=== PATIENT | male | born 1950 | race Asian ===

== ENCOUNTER 2022-02-03 07:48 | Outpatient (REF) | payer OTHER, SELFPAY ==
[2022-02-03 11:14] LABS: MANUAL DIFF FLAG NO
[2022-02-03 11:36] LABS: Basophils Percent Auto 0.4 % (0-2); Eosinophils Absolute Auto 0.8 X10*3/uL (0.0-0.4); Eosinophils Percent Auto 10.6 % (0-4); Hematocrit 45.9 % (42.0-52.0); Imm Gran Abs Auto 0.04 X10*3/uL (0.00-0.03); Imm Gran Pct Auto 0.5 % (0.0-0.4); Lymphocytes Absolute Auto 2.3 X10*3/uL (1.2-4.9); Lymphocytes Percent Auto 28.8 % (20-40); Mean Corpuscular HGB Conc 32.7 g/dl (31.0-36.0); Mean Corpuscular Volume 85.8 fL (80.0-98.0); Mean Platelet Volume 10.6 fL (9.4-12.4); Monocytes Absolute Auto 0.6 X10*3/uL (0.1-1.2); Monocytes Percent Auto 7.3 % (2-11); Neutrophils Absolute Auto 4.2 x10*3/uL (2.0-8.3); Neutrophils Percent Auto 52.4 % (45-73); Platelet Count 181 X10*3/uL (160-400); Red Blood Count 5.35 X10*6/uL (4.60-5.80); Red Cell Distribution Width 13.6 % (11.0-16.0)
[2022-02-03 12:27] LABS: Alanine Aminotransferase 15 U/L (0-40); Alkaline Phosphatase 73 U/L (39-117); Anion Gap 14 (12-20); Aspartate Amino Transferase 16 U/L (5-37); Bilirubin Total 0.7 mg/dL (0.0-1.0); Blood Urea Nitrogen 16 mg/dL (9-16); Calcium 9.2 mg/dL (8.4-10.2); Carbon Dioxide 25 mmol/L (22-29); Chloride 106 mmol/L (96-108); Cholesterol 164 mg/dL; Estimated Glomerular Filt Rate 39; Glucose Fasting 95 mg/dL (60-99); HDL Cholesterol 35 mg/dL; LDL Cholesterol Calculated 104 mg/dl; Potassium 3.7 mmol/L (3.3-5.1); Sodium 141 mmol/L (135-145); Total Protein 6.6 g/dL (6.5-8.0); Triglycerides 127 mg/dL
== END 2022-02-03 07:49 | disposition home or self-care (01) ==
LOC: HO.WFDLDS 07:48
PROVIDERS: Visit Provider Nurse Practitioner Family
DX: Z00.00 Encounter for general adult medical examination without abnormal findings (principal); Z12.5 Encounter for screening for malignant neoplasm of prostate
CPT/HCPCS: 36415; 80053; 80061; 84153; 85025

== ENCOUNTER 2022-02-13 08:58 | Outpatient (REF) | payer OTHER, SELFPAY ==
[2022-02-13 10:53] LABS: Estimated Glomerular Filt Rate 43
== END 2022-02-13 08:59 | disposition home or self-care (01) ==
LOC: HO.WFDLDS 08:58
PROVIDERS: Visit Provider Nurse Practitioner Family
DX: N17.9 Acute kidney failure, unspecified (principal)
CPT/HCPCS: 36415; 82565

== ENCOUNTER 2022-04-16 09:48 | Outpatient (REF) | payer OTHER, SELFPAY ==
[2022-04-16 12:05] LABS: Alanine Aminotransferase 11 U/L (0-40); Albumin Level 3.8 g/dL (3.5-5.0); Anion Gap 16 (12-20); Aspartate Amino Transferase 14 U/L (5-37); Blood Urea Nitrogen 15 mg/dL (9-16); Calcium 8.8 mg/dL (8.4-10.2); Carbon Dioxide 22 mmol/L (22-29); Chloride 107 mmol/L (96-108); Estimated Glomerular Filt Rate 46; Glucose Fasting 100 mg/dL (60-99); Potassium 3.7 mmol/L (3.3-5.1); Sodium 141 mmol/L (135-145); Total Protein 6.3 g/dL (6.5-8.0)
[2022-04-16 12:21] LABS: Alkaline Phosphatase 74 U/L (39-117); Bilirubin Total 0.7 mg/dL (0.0-1.0)
== END 2022-04-16 09:49 | disposition home or self-care (01) ==
LOC: HO.WFDLDS 09:48
PROVIDERS: Visit Provider Nurse Practitioner Family
DX: N28.9 Disorder of kidney and ureter, unspecified (principal)
CPT/HCPCS: 36415; 80053

== ENCOUNTER → 2022-04-22 09:52 | Outpatient (BNVA) | payer OTHER, SELFPAY | PROVIDERS: PCP Nurse Practitioner Family; Visit Provider Nurse Practitioner Family | DX: N40.1 Benign prostatic hyperplasia with lower urinary tract symptoms (principal); R39.14 Feeling of incomplete bladder emptying | CPT/HCPCS: 51798; 99202 ==

== ENCOUNTER 2022-05-07 08:39 | Outpatient (REF) | payer OTHER, SELFPAY ==
[2022-05-07 10:29] LABS: PSA,Total (Free>4and<10) 20.16 ng/mL (0.00-4.00)
== END 2022-05-07 08:40 | disposition home or self-care (01) ==
LOC: HO.LAB 08:39
PROVIDERS: PCP Nurse Practitioner Family; Visit Provider Nurse Practitioner Family
DX: N40.0 Benign prostatic hyperplasia without lower urinary tract symptoms (principal)
CPT/HCPCS: 36415; 84153

== ENCOUNTER → 2022-07-18 09:40 | Outpatient (BNVA) | payer OTHER, SELFPAY | PROVIDERS: PCP Nurse Practitioner Family; Visit Provider Urology | DX: N40.1 Benign prostatic hyperplasia with lower urinary tract symptoms (principal); R39.14 Feeling of incomplete bladder emptying; R97.20 Elevated prostate specific antigen [PSA] | CPT/HCPCS: 52000; 99212 ==

== ENCOUNTER 2022-10-16 08:52 | Outpatient (AMB) | payer OTHER, SELFPAY ==
[2022-10-16 08:57] VITALS: BP 108/60; PULSE 74; RESP 12; TEMP 36.2; O2SAT 99; BMI 20.6
--- NOTE | 2022-10-16 08:57 | MHC.PC.OV ---
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 Accompanied by: Self / Same As Patient Allergies No Known Allergies Allergy (Verified 10/16/22 09:31) Medication List - Last Reconciled 10/16/22 by Tc Escudero CNP finasteride 5 mg PO DAILY 90 days terazosin 10 mg PO BEDTIME 90 days Tobacco use date assessed: 04/16/22 Fall risk assessment: No Falls in past year Last assessed Fall Risk: 10/16/22 Dental Screening Dental Screen Date: 10/16/22 Did you have a dental visit in the last 12 months?: No Did you have a dental problem in the last 6 months where you did not have access to dental care?: No Was dental information given to patient?: Patient has dentist HPI HPI Comments History of Present Illness Details 72 y/o male presents with for BPH and kidney disease follow up. He notes he has been taking his medications as prescribed. No symptoms. He missed his initial nephrology appointment in May and states he has an appointment with Nephrology next month. He reports intermittent pain to the muscle above his left scapula for the past one month. Range of motion is not restricted. No fall, injury, or trauma. He takes Tylenol with some improvement. [facility] Medical History Enlarged prostate Social History Housing: House Patient Tobacco Use Status: Never used Tobacco e-Cigarette/Vaping Use: Never Used Second Hand Smoke Exposure: No service: No Current occupational status: employed Current occupation: [employer] Current occupational exposures/hazards: No Cognitive needs: No Hearing needs: No Vision needs: No Questionnaire Thrive Questionnaire Date Thrive assessed: 04/16/22 NIYA-7 AMB Questionnaire NIYA-7 Date NIYA - 7 assessed: 04/16/22 Source: Developed by Drs. Ariel Arias, Marie Momin, Cedrick Nascimento and colleagues, with an educational leigh ann from [employer]. Review of Systems Const Details: Const Denies chills, Denies fatigue, Denies fever(s), Denies headache(s) and Denies weakness ENT Denies dizziness and Denies headache(s) Card Denies chest pain, Denies lightheadedness, Denies dyspnea and Denies other (Palpitations) Resp Denies cough, Denies dyspnea, Denies wheezing and Denies other ( shortness of breath) GI Denies abdominal pain, Denies melena, Denies hematochezia, Denies change in bowel habits, Denies dyspepsia and Denies nausea Denies hematuria and Denies dysuria Musc Reports upper back pain, Denies abnormal gait, Denies myalgias, Denies arthralgias, Denies numbness and Denies tingling Skin/Breast Denies rash, Denies unusual bruising and Denies wounds Neuro Denies abnormal gait, Denies dizziness, Denies headache(s), Denies memory loss, Denies numbness, Denies Sensory deficit (Neuro), Denies tingling and Denies weakness Psych Denies anxiety, Denies depression, Denies memory loss Endo Denies cold intolerance, Denies fatigue, Denies heat intolerance, Denies polydipsia and Denies polyuria Aller/Immun Denies wheezing Physical exam (Primary Care) Vital Signs: Last Vital Signs Temp 97.2 F 10/16/22 08:57 Pulse 74 10/16/22 08:57 Resp 12 10/16/22 08:57 BP 108/60 10/16/22 08:57 Pulse Ox 99 10/16/22 08:57 Oxygen Delivery Method Room Air 10/16/22 08:57 BMI result Body Mass Index 20.6 Tobacco/Smoking Status: Tobacco use Status Tobacco use date assessed 04/16/22 10/16/22 09:05 Patient Tobacco Use Status Never used Tobacco 10/16/22 09:05 e-Cigarette/Vaping Use Never Used 10/16/22 09:05 Thrive Assessment: Date of Thrive Assessment Date Thrive assessed 04/16/22 10/16/22 09:05 Const Other: General: no acute distress and well developed Nutritional Appearance: well nourished Orientation/consciousness: patient oriented x3 HENMT Head: Yes normocephalic and Yes atraumatic Eyes General: appearance normal, both eyes and all related structures Pupils: Equal, round and reactive pupils present EOM: EOMs intact bilaterally Resp Effort & Inspection: normal respiratory effort Auscultation: clear to auscultation bilaterally Cardio Rate: regular rate Rhythm: regular rhythm Heart sounds: S1 normal heart sound present, S2 normal heart sound present, no gallops, no murmurs and no rubs GI Palpation (GI): No Abdominal aortic bruit present, Soft to palpation, nontender, No hepatosplenomegaly present and No Rebound tenderness present Auscultation: normal bowel sounds General: Yes no CVA tenderness Back/Spine/Pelvis Back: no CVA tenderness. Tenderness to upper left supraspinatus and infraspinatus Cervical Spine: cervical ROM normal and No Cervical spine tenderness Thoracic/Lumbar Spine: thoraco-lumbar ROM normal, No pain with thoraco-lumbar ROM, No thoracic spinal tenderness and No lumbar spinal tenderness Extrem General: Yes normal to inspection, No edema and No calf tenderness Skin General: warm and dry. Normal skin color. Normal skin turgor Lesions: no lesions Rashes: no rashes Trauma: no lacerations or abrasions Wounds: no wounds Nails: normal Neuro General: patient oriented x3, gait normal and no focal neuro deficit Cranial nerves: Yes Equal, round and reactive pupils present Cognition (Neuro): normal cognition Gait exam (Neuro): Normal gait present Sensory Exam: No Sensory deficit (Neuro) Psych Appearance: grossly normal Affect: normal affect Attitude: cooperative Thought process: Normal thought process present Assessment and Plan Assessment & Plan (1) Benign prostatic hyperplasia with incomplete bladder emptying: Code(s): N40.1 - Benign prostatic hyperplasia with lower urinary tract symptoms; R39.14 - Feeling of incomplete bladder emptying Plan: Stable Take terazosin and finasteride as prescribed Follow-up with urology as planned Return in 4 months or sooner with new or worsening symptoms Verbalized understanding and agreed with the treatment plan. (2) Kidney disease: Code(s): N28.9 - Disorder of kidney and ureter, unspecified Plan: Recent creatinine was elevate, GFR was low. He has an appointment with Nephrology on 11/25/2022 Encouraged to follow-up with Nephrology as planned BUN, creatinine, and GFR ordered to monitor trend. Advised to get blood work done Adequate hydration encouraged Follow-up in 4 months or return sooner with symptoms or concerns Verbalized understanding and agreed with the plan. (3) Muscular pain: Code(s): M79.10 - Myalgia, unspecified site Plan: Tenderness to upper left supraspinatus and infraspinatus Diclofenac as prescribed May take Tylenol for pain or discomfort Warm/cool compresses encouraged Follow-up with worsening or new symptoms Verbalized understanding and agreed with treatment plan. Orders: Orders Blood Urea Nitrogen Today N28.9 - Disorder of kidney and ureter, unspecified Creatinine Today N28.9 - Disorder of kidney and ureter, unspecified Medications: New diclofenac sodium 1% (Arthritis Pain (diclofenac)) apply to upper back 2 grams topical BID 100 grams 0RF Coding Level of Care Code Est Pt Level 3 (92864) Diagnoses Benign prostatic hyperplasia with incomplete bladder emptying N40.1; R39.14 Kidney disease N28.9 Muscular pain M79.10 Time Spent (min) 25
== END 2022-10-16 10:01 | disposition home or self-care (01) ==
PROVIDERS: Visit Provider Nurse Practitioner Family
DX: N40.1 Benign prostatic hyperplasia with lower urinary tract symptoms (principal); R39.14 Feeling of incomplete bladder emptying; N28.9 Disorder of kidney and ureter, unspecified; M79.10 Myalgia, unspecified site
CPT/HCPCS: 99213

== ENCOUNTER 2022-10-16 10:02 | Outpatient (REF) | payer OTHER, SELFPAY ==
[2022-10-16 12:51] LABS: Blood Urea Nitrogen 13 mg/dL (9-16); Estimated Glomerular Filt Rate 42
[2022-10-16 13:09] LABS: PSA,Total (Free>4and<10) 10.63 ng/mL (0.00-4.00)
[2022-10-20 10:37] LABS: Free Prostate Spec Ag 1.8 ng/mL; Percent Free Prostate Spec Ag 19 % (calc) (>25); Prostate Specific Ag Total 9.7 ng/mL (< OR = 4.0)
== END 2022-10-16 10:03 | disposition home or self-care (01) ==
LOC: HO.WFDLDS 10:02
PROVIDERS: Urology; Visit Provider Nurse Practitioner Family
DX: Z12.5 Encounter for screening for malignant neoplasm of prostate (principal); N40.1 Benign prostatic hyperplasia with lower urinary tract symptoms; R39.14 Feeling of incomplete bladder emptying
CPT/HCPCS: 36415; 82565; 84153; 84154; 84520

== ENCOUNTER 2022-11-21 09:20 | Outpatient (AMB) | payer BC, SELFPAY ==
--- NOTE | 2022-11-21 09:24 | MHC.OFFVIS ---
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 He patient of Dr. Escudero. He seen for the following urologic issues - lower urinary tract symptoms - elevated PSA Impressive response to finasteride PSA dropped by 50% Minimal urinary symptoms PVR 130 cc improved Six month follow-up PSA and PVR Continue maximum combination therapy Lower urinary tract symptoms Previous diagnosis of BPH - current medication finasteride, terazosin 10 mg Imaging in [place] 2020 enlarged prostate with 70 cc residual - biopsy negative Prior use of Flomax, poor response to terazosin PSA 05/26 20, 10/29 9.7 19% Cystoscopy - 07/29 trilobar enlargement, trabeculation with cellules grade 2 PFSH Medical History Enlarged prostate Social History Housing: House Patient Tobacco Use Status: Never used Tobacco e-Cigarette/Vaping Use: Never Used Second Hand Smoke Exposure: No service: No Current occupational status: employed Current occupation: [employer] Current occupational exposures/hazards: No Cognitive needs: No Hearing needs: No Vision needs: No Review of Systems Const Denies chills and Denies fever(s) Card Reports no additional complaints and Denies syncope Resp Denies cough GI Denies abdominal pain and Denies heartburn Reports as per HPI and Denies change in libido Neuro Denies syncope Psych Denies change in libido Endo Denies change in libido Physical Exam Const General: cooperative, healthy appearing, comfortable and no acute distress Orientation/consciousness: patient oriented x3 HEENT Face and sinus: Yes normal facial exam Mouth: moist mucous membranes Neck Neck: Yes normal visual inspection, Yes full ROM and Yes trachea midline Chest Chest palpation & inspection: normal inspection of the chest Resp Effort & Inspection: normal respiratory effort, able to speak in complete sentences and no respiratory distress GI Inspection: Yes normal to inspection Back/Spine/Pelvis Cervical Spine: normal cervical lordosis Thoracic/Lumbar Spine: thoracic and lumbar spine normal to inspection Skin General skin exam: no rashes or lesions noted Neuro General: patient oriented x3, gait normal, tone normal and moves all extremities Extrem General: Yes normal to inspection and Yes capillary refill normal Office Procedures Post Void Residual Post Residual Void Post Void Residual (PVR): 136 [id number] Void Residual by ultrasound Results AMB Urinalysis, Automated UA Leukoctes 0 Elicia/uL Last Edit by [employer] on 11/21/22 09:42 UA Nitrite Last Edit by [employer] on 11/21/22 09:42 UA Urobilinogen 0.2 mg/dL Last Edit by [employer] on 11/21/22 09:42 UA Protein 0 mg/dL Last Edit by [employer] on 11/21/22 09:42 UA pH 6.0 Last Edit by [employer] on 11/21/22 09:42 UA Blood 0 Ernesto/uL Last Edit by [employer] on 11/21/22 09:42 UA Specific Rhome 1.010 Last Edit by [employer] on 11/21/22 09:42 UA Ketone Negative Last Edit by [employer] on 11/21/22 09:42 UA Bilirubin 0 mg/dL Last Edit by [employer] on 11/21/22 09:42 UA Glucose 0 mg/dL Last Edit by [employer] on 11/21/22 09:42 Assessment & Plan Assessment & Plan (1) Benign prostatic hyperplasia with incomplete bladder emptying: Code(s): N40.1 - Benign prostatic hyperplasia with lower urinary tract symptoms; R39.14 - Feeling of incomplete bladder emptying (2) Elevated PSA: Code(s): R97.20 - Elevated prostate specific antigen [PSA] Plan Six month follow-up Orders: Orders AMB Urinalysis Automated Today Z13.9 - Encounter for screening, unspecified AMB Post Void Residual by ultrasound Today N40.0 - Benign prostatic hyperplasia without lower urinary tract symptoms PSA,Total (Free>4and<10) 6 Months R97.20 - Elevated prostate specific antigen [PSA] Patient Instructions: Imaging studies, laboratory and physical exam results were discussed and reviewed in detail. No major barriers to patient understanding were identified. An opportunity to ask questions regarding the treatment plan was provided. All questions were answered. The patient expressed understanding and agreement with the above treatment plan. The patient is aware they should contact our office by phone for worsening of their current condition or the appearance of new urologic symptoms. Compliance is encouraged with any medications and followup testing that is ordered. It is a privilege to participate in the urologic care of your patient. If you have any questions or concerns regarding treatment for the above conditions, or other urologic issues, please do not hesitate to contact me. The office telephone contact is [phone]. This note is constructed using voice recognition software. While every effort has been made to ensure accuracy mine engineering manager errors may have been included. Yours sincerely, Dr Tristan Keenan MD, [facility] - Urology Providers of Expert, Compassionate Care for the Genitourinary System Coding Level of Care Code Est Pt Level 3 (54807) Diagnoses Benign prostatic hyperplasia with incomplete bladder emptying N40.1; R39.14 Elevated PSA R97.20 CPT Codes Post Residual Void - PVR CPT Code: [id number]-[id number] Void Residual by ultrasound ([id number])
== END 2022-11-21 09:48 | disposition home or self-care (01) ==
PROVIDERS: PCP Nurse Practitioner Family; Visit Provider Urology
DX: N40.1 Benign prostatic hyperplasia with lower urinary tract symptoms (principal); R39.14 Feeling of incomplete bladder emptying; R97.20 Elevated prostate specific antigen [PSA]; Z13.9 Encounter for screening, unspecified
CPT/HCPCS: 99213

== ENCOUNTER → 2022-11-21 09:20 | Outpatient (BNVA) | payer BC, SELFPAY | PROVIDERS: PCP Nurse Practitioner Family; Visit Provider Urology | DX: R97.20 Elevated prostate specific antigen [PSA] (principal); N40.1 Benign prostatic hyperplasia with lower urinary tract symptoms; R33.8 Other retention of urine | CPT/HCPCS: 51798; 81003 ==

== ENCOUNTER 2023-03-10 09:40 | Outpatient (AMB) | payer BC, SELFPAY ==
[2023-03-10 09:48] VITALS: BP 126/68; PULSE 71; RESP 13; TEMP 36.5; O2SAT 99; BMI 21.1
--- NOTE | 2023-03-10 09:48 | A.OFFPC_ITS ---
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 Accompanied by: Self / Same As Patient Allergies No Known Allergies Allergy (Verified 03/10/23 09:58) Medication List - Last Reconciled 03/10/23 by Tc Escudero CNP diclofenac sodium 1% (Arthritis Pain (diclofenac)) 2 grams topical BID finasteride 5 mg PO DAILY terazosin 10 mg PO BEDTIME 90 days Tobacco use date assessed: 03/10/23 Fall risk assessment: No Falls in past year Last assessed Fall Risk: 03/10/23 Dental Screening Dental Screen Date: 03/10/23 Did you have a dental visit in the last 12 months?: No Did you have a dental problem in the last 6 months where you did not have access to dental care?: No Was dental information given to patient?: Yes HPI HPI Comments History of Present Illness Details 72 y/o male presents with for BPH and ki dney disease follow up He notes he has been taking his medications as prescribed. No symptoms He is followed by Urology. His last visit was in November. His next follow-up visit is in May. His PSA level is improving, current PSA is 9.7 He notes that he saw [facility] in November 2022. Multiple tests were done and he received a significant bill. He notes that his health plan does does not provide good health care coverage, therefore, he does not wish to continue following neurology. He notes that he will seek Nephrology care in his home country, [place], sometime this year [facility] Medical History Enlarged prostate Surgical History (Updated 03/10/23 @ 09:55 by Kezia Haddad MA) No pertinent past surgical history Social History Housing: House Patient Tobacco Use Status: Never used Tobacco e-Cigarette/Vaping Use: Never Used Second Hand Smoke Exposure: No service: No Current occupational status: employed Current occupation: [employer] Current occupational exposures/hazards: No Cognitive needs: No Hearing needs: No Vision needs: No Questionnaire Thrive Questionnaire Date Thrive assessed: 04/16/22 NIYA-7 AMB Questionnaire NIYA-7 Date NIYA - 7 assessed: 04/16/22 Source: Developed by Drs. Ariel Arias, Marie Momin, Cedrick Nascimento and colleagues, with an educational leigh ann from [employer]. Review of Systems Const Details: Const Denies chills, Denies fatigue, Denies fever(s), Denies headache(s) and Denies weakness ENT Denies dizziness and Denies headache(s) Card Denies chest pain, Denies lightheadedness, Denies dyspnea and Denies other (Palpitations) Resp Denies cough, Denies dyspnea, Denies wheezing and Denies other ( shortness of breath) GI Denies abdominal pain, Denies melena, Denies hematochezia, Denies change in bowel habits, Denies dyspepsia and Denies nausea Denies hematuria and Denies dysuria Musc Denies abnormal gait, Denies myalgias, Denies arthralgias, Denies numbness and Denies tingling Skin/Breast Denies rash, Denies unusual bruising and Denies wounds Neuro Denies abnormal gait, Denies dizziness, Denies headache(s), Denies memory loss, Denies numbness, Denies Sensory deficit (Neuro), Denies tingling and Denies weakness Psych Denies anxiety, Denies depression, Denies memory loss Endo Denies cold intolerance, Denies fatigue, Denies heat intolerance, Denies polydipsia and Denies polyuria Aller/Immun Denies wheezing Physical exam (Primary Care) Tobacco/Smoking Status: Tobacco use Status Tobacco use date assessed 04/16/22 10/16/22 09:05 Patient Tobacco Use Status Never used Tobacco 10/16/22 09:05 e-Cigarette/Vaping Use Never Used 10/16/22 09:05 Thrive Assessment: Date of Thrive Assessment Date Thrive assessed 04/16/22 10/16/22 09:05 Const Other: General: no acute distress and well developed Nutritional Appearance: well nourished Orientation/consciousness: patient oriented x3 HENMT Head: Yes normocephalic and Yes atraumatic Eyes General: appearance normal, both eyes and all related structures Pupils: Equal, round and reactive pupils present EOM: EOMs intact bilaterally Resp Effort & Inspection: normal respiratory effort Auscultation: clear to auscultation bilaterally Cardio Rate: regular rate Rhythm: regular rhythm Heart sounds: S1 normal heart sound present, S2 normal heart sound present, no gallops, no murmurs and no rubs GI Palpation (GI): No Abdominal aortic bruit present, Soft to palpation, nontender, No hepatosplenomegaly present and No Rebound tenderness present Auscultation: normal bowel sounds General: Yes no CVA tenderness Back/Spine/Pelvis Back: no CVA tenderness Cervical Spine: cervical ROM normal and No Cervical spine tenderness Thoracic/Lumbar Spine: thoraco-lumbar ROM normal, No pain with thoraco-lumbar ROM, No thoracic spinal tenderness and No lumbar spinal tenderness Extrem General: Yes normal to inspection, No edema and No calf tenderness Skin General: warm and dry. Normal skin color. Normal skin turgor Neuro General: patient oriented x3, gait normal and no focal neuro deficit Cranial nerves: Yes Equal, round and reactive pupils present Cognition (Neuro): normal cognition Gait exam (Neuro): Normal gait present Sensory Exam: No Sensory deficit (Neuro) Psych Appearance: grossly normal Affect: normal affect Attitude: cooperative Thought process: Normal thought process present Assessment and Plan Assessment & Plan (1) Kidney disease: Code(s): N28.9 - Disorder of kidney and ureter, unspecified Plan: He notes that he saw [facility] in November 2022. Multiple tests were done and he received a significant bill. He notes that his health plan does does not provide good health care coverage, therefore, he does not wish to continue following neurology. He notes that he will seek Nephrology care in his [place] country, [facility], sometime this year He declines meeting with the community navigator to determine measures to assist him with his healthcare bills to continue following [facility] He notes that he will seek neurology care in [place] Will recheck kidney functions Will request his health record from [facility] Advised to get blood work done before his next visit Follow-up in 1 month for an extended physical exam or return sooner with symptoms or concerns Verbalized understanding and agreed with treatment plan (2) Benign prostatic hyperplasia with incomplete bladder emptying: Code(s): N40.1 - Benign prostatic hyperplasia with lower urinary tract symptoms; R39.14 - Feeling of incomplete bladder emptying Plan: No acute symptoms Continue current treatment regimen Follow-up with urology as planned Verbalized understanding and agreed with the treatment plan (3) Laboratory tests ordered as part of a complete physical exam (CPE): Code(s): Z00.00 - Encounter for general adult medical examination without abnormal findings Plan: Fasting labs ordered as part of a complete physical exam. Advised to fast for at least 10 hours before getting labs drawn. May drink water Verbalized understanding and agreed with treatment plan. Orders: Orders Complete Blood Count Auto Diff Today Z00.00 - Encounter for general adult medical examination without abnormal findings Lipid Panel Today Z00.00 - Encounter for general adult medical examination without abnormal findings UA CC w/rflx Micro + Cult Today Z00.00 - Encounter for general adult medical examination without abnormal findings Comprehensive [place]. Panel Fast Today Z00.00 - Encounter for general adult medical examination without abnormal findings TSH reflex Free T4 Today Z00.00 - Encounter for general adult medical exa mination without abnormal findings Medications: Changed From finasteride 5 mg PO DAILY 90 days 90 tabs 1RF N40.1 - Benign prostatic hyperplasia with lower urinary tract symptoms, R39.14 - Feeling of incomplete bladder emptying To finasteride 5 mg PO DAILY N40.1 - Benign prostatic hyperplasia with lower urinary tract symptoms, R39.14 - Feeling of incomplete bladder emptying Coding Level of Care Code Est Pt Level 3 (08553) Diagnoses Kidney disease N28.9 Benign prostatic hyperplasia with incomplete bladder emptying N40.1; R39.14 Laboratory tests ordered as part of a complete physical exam (CPE) Z00.00
== END 2023-03-10 10:21 | disposition home or self-care (01) ==
PROVIDERS: PCP Nurse Practitioner Family; Visit Provider Nurse Practitioner Family
DX: N28.9 Disorder of kidney and ureter, unspecified (principal); N40.1 Benign prostatic hyperplasia with lower urinary tract symptoms; R39.14 Feeling of incomplete bladder emptying; Z00.00 Encounter for general adult medical examination without abnormal findings
CPT/HCPCS: 99213

== ENCOUNTER 2023-04-07 07:36 | Outpatient (REF) | payer BC, SELFPAY ==
[2023-04-07 11:12] LABS: MANUAL DIFF FLAG NO
[2023-04-07 11:14] LABS: Basophils Absolute Auto 0.1 X10*3/uL (0.0-0.2); Basophils Percent Auto 0.5 % (0-2); Eosinophils Absolute Auto 1.1 X10*3/uL (0.0-0.4); Eosinophils Percent Auto 10.5 % (0-4); Hemoglobin 15.5 g/dl (14.0-18.0); Imm Gran Abs Auto 0.04 X10*3/uL (0.00-0.03); Imm Gran Pct Auto 0.4 % (0.0-0.4); Lymphocytes Absolute Auto 2.6 X10*3/uL (1.2-4.9); Lymphocytes Percent Auto 23.7 % (20-40); Mean Corpuscular Hemoglobin 28.5 pg (27.0-33.0); Mean Corpuscular Volume 86.6 fL (80.0-98.0); Mean Platelet Volume 10.1 fL (9.4-12.4); Monocytes Absolute Auto 0.6 X10*3/uL (0.1-1.2); Monocytes Percent Auto 5.9 % (2-11); Neutrophils Absolute Auto 6.4 x10*3/uL (2.0-8.3); Platelet Count 230 X10*3/uL (160-400); Red Blood Count 5.43 X10*6/uL (4.60-5.80); Red Cell Distribution Width 13.2 % (11.0-16.0); White Blood Count 10.8 X10*3/uL (4.8-10.8)
[2023-04-07 11:21] LABS: Appearance Urine Clear; Color Urine Yellow; Glucose Urine UA Negative (Negative); Leukocyte Esterase Urine Negative (Negative); Nitrite Urine Negative (Negative); Specific Gravity - Urine <= 1.005 (1.005-1.025); Urine Blood Negative (Negative); Urine Ketones Negative (Negative); Urine Protein Negative (Neg-Trace)
[2023-04-07 11:38] LABS: Alanine Aminotransferase 15 U/L (0-40); Albumin Level 3.9 g/dL (3.5-5.0); Alkaline Phosphatase 64 U/L (39-117); Anion Gap 9 (12-20); Aspartate Amino Transferase 17 U/L (5-37); Bilirubin Total 0.7 mg/dL (0.0-1.0); Blood Urea Nitrogen 16 mg/dL (9-16); Calcium 9.1 mg/dL (8.4-10.2); Carbon Dioxide 28 mmol/L (22-29); Chloride 107 mmol/L (96-108); Cholesterol 165 mg/dL (<200); Estimated Glomerular Filt Rate 39; Glucose Fasting 104 mg/dL (60-99); HDL Cholesterol 37 mg/dL (>40); LDL Cholesterol Calculated 106 mg/dL (<100); Potassium 3.8 mmol/L (3.3-5.1); Sodium 140 mmol/L (135-145); Total Protein 6.9 g/dL (6.5-8.0); Triglycerides 111 mg/dL (<150)
[2023-04-07 11:54] LABS: PSA,Total (Free>4and<10) 9.78 ng/mL (0.00-4.00); TSH reflex Free T4 4.11 uIU/mL (0.32-4.0)
[2023-04-07 12:50] LABS: Free T4 (Free Thyroxine) 0.83 ng/dL (0.71-1.85)
[2023-04-09 11:24] LABS: Free Prostate Spec Ag 1.8 ng/mL; Percent Free Prostate Spec Ag NOT CALCULATED % (calc) (>25); Prostate Specific Ag Total 10.8 ng/mL (< OR = 4.0)
== END 2023-04-07 07:37 | disposition home or self-care (01) ==
LOC: HO.WFDLDS 07:36
PROVIDERS: Urology; Visit Provider Nurse Practitioner Family
DX: Z00.00 Encounter for general adult medical examination without abnormal findings (principal); Z12.5 Encounter for screening for malignant neoplasm of prostate; R97.20 Elevated prostate specific antigen [PSA]
CPT/HCPCS: 36415; 80053; 80061; 81003; 84153; 84154; 84439; 84443; 85025

== ENCOUNTER 2023-04-21 08:12 | Outpatient (AMB) | payer BC, SELFPAY ==
--- NOTE | 2023-04-21 08:16 | A.OFFPC_ITS ---
Vital Signs 04/21/23 08:17 Height 5 ft 10 in Weight 148 lb BMI 21.2 BP 126/70 Blood Pressure Location Rt brachial Position Sitting Respiration 13 Pulse 88 Pulse Source Pulse Oximeter Temp 97.6 F Temp Source Temporal Artery Scan Pulse Oximetry (%) 98 Oxygen Delivery Method Room Air Intake Visit Reasons: 1 mos CPE, labs review Personal Loan Specialist Required: No Accompanied by: Self / Same As Patient Allergies No Known Allergies Allergy (Verified 04/21/23 08:34) Medication List - Last Reconciled 04/21/23 by Tc Escudero CNP diclofenac sodium 1% (Arthritis Pain (diclofenac)) 2 grams topical BID finasteride 5 mg PO DAILY terazosin 10 mg PO BEDTIME 90 days Tobacco use date assessed: 03/10/23 Fall risk assessment: No Falls in past year Last assessed Fall Risk: 04/21/23 Dental Screening Dental Screen Date: 04/21/23 Did you have a dental visit in the last 12 months?: Yes Did you have a dental problem in the last 6 months where you did not have access to dental care?: No Was dental information given to patient?: Patient has dentist HPI HPI Comments History of Present Illness Details 73-year-old male presents for an extende d physical exam He has past medical history significant for BPH and stage IIIB CKD He admits to taking his medications as prescribed without adverse reactions He offers no complaints and denies acute symptoms at this time [place] [facility] [place] He [facility]. He was last seen on 11/25/2022. He was advised to follow-up in 6 weeks. He notes that his health plan does does not provide good health care coverage, therefore, he does not wish to continue following neurology. He notes that he will seek Nephrology care in his home country, [facility] in September this year He notes that he has never had a colonoscopy. He declines colonoscopy at this time He notes he has had the flu vaccine this season [facility] Medical History Enlarged prostate Surgical History No pertinent past surgical history Social History Housing: House Patient Tobacco Use Status: Never used Tobacco e-Cigarette/Vaping Use: Never Used Second Hand Smoke Exposure: No service: No Current occupational status: employed Current occupation: [employer] Current occupational exposures/hazards: No Cognitive needs: No Hearing needs: No Vision needs: No Questionnaire PHQ-9 Over the last 2 weeks, how often have you been bothered by any of the following problems? 1. Little interest or pleasure in doing things: several days 2. Feeling down, depressed, or hopeless: not at all 3. Trouble falling or staying asleep, or sleeping too much: not at all 4. Feeling tired or having little energy: not at all 5. Poor appetite or overeating: not at all 6. Feeling bad about yourself - or that you are a failure or have let yourself or your family down: not at all 7. Trouble concentrating on things, such as reading the newspaper or watching television: not at all 8. Moving or speaking so slowly that other people could have noticed. Or the opposite - being so fidgety or restless that you have been moving around a lot more than usual: not at all 9. Thoughts that you would be better off or of hurting yourself in some way: not at all Total score: 1 Depression Screening Interpretation: Negative Depression Screening Done: Yes 99194 - PHQ-9 Billing: Yes Source: Developed by Drs. Ariel Arias, Marie Momin, Cedrick Nascimento and colleagues, with an educational leigh ann from [employer]. Thrive Questionnaire Date Thrive assessed: 04/21/23 I am a: Patient What is your living situation today?: I have a steady place to live Within the past 12 months, did the food you bought not last and you didn't have the money to get more?: Never true Within the past 12 months, did you worry whether your food would run out before you got money to buy more?: Never true Do you have trouble paying for medicines?: No Do you have trouble getting transportation to medical appointments?: No Do you have trouble paying your heating and electricity bill?: No Do you have trouble taking care of your child, family member or friend?: No Do you have trouble with day-to-day activities such as bathing, preparing meals, shopping, managing finances, etc.?: No Are you currently unemployed and looking for a job?: No Are you interested in more education?: No Please select the resources that you would like help with: None Currently or been in a relationship where the following occur: no concerns reported THRIVE Score: 0 AUDIT C Alcohol Use Questionnaire (AUDIT-C) 1. How often do you have a drink containing alcohol?: Never 3. How often do you have six or more drinks on one occasion?: Never Total Score: 0 NIYA-7 AMB Questionnaire NIYA-7 Date NIYA - 7 assessed: 04/21/23 Feeling nervous, anxious, or on edge: 0 = Not at all Not being able to stop or control worryin = Not at all Worrying too much about different things: 0 = Not at all Trouble relaxin = Not at all Being so restless that it is hard to sit still: 0 = Not at all Becoming easily annoyed or irritable: 0 = Not at all Feeling afraid as if something awful might happen: 0 = Not at all Total NIYA-7 score (0-4 normal; 5-9 mild; 10-14 moderate; 15-21 severe): 0 Source: Developed by Drs. Ariel Arias, Marie Momin, Cedrick Nascimento and colleagues, with an educational leigh ann from [employer]. NIYA-7 Assessment Billing NIYA-7 Assessment Tool: NIYA-7 Assessment 97336 Review of Systems Const Details: Denies chills, Denies fatigue, Denies fever(s), Denies headache(s) and Denies weakness HEENT Denies change in vision, Denies dizziness, Denies headache(s), Denies hearing loss, Denies nasal congestion, Denies sinus pain, Denies sinus pressure and Denies sore throat Card Denies chest pain, Denies lightheadedness, Denies dyspnea and Denies other (palpitations) Resp Denies cough, Denies dyspnea and Denies wheezing GI Denies abdominal pain, Denies melena, Denies hematochezia, Denies change in bowel habits, Denies dyspepsia and Denies nausea Denies hematuria and Denies dysuria Musc Denies abnormal gait, Denies myalgias, Denies arthralgias, Denies numbness and Denies tingling Skin/Breast Denies rash, Denies unusual bruising and Denies wounds Neuro Denies abnormal gait, Denies dizziness, Denies headache(s), Denies memory loss, Denies numbness, Denies Sensory deficit (Neuro), Denies tingling and Denies weakness Psych Denies anxiety, Denies depression and Denies memory loss Endo Denies cold intolerance, Denies fatigue, Denies heat intolerance, Denies polydipsia and Denies polyuria Montrell/Lymph Denies easy bleeding and Denies easy bruising Aller/Immun Denies wheezing Physical exam (Primary Care) Vital Signs: Last Vital Signs Temp 97.6 F 04/21/23 08:17 Pulse 88 04/21/23 08:17 Resp 13 04/21/23 08:17 BP 126/70 04/21/23 08:17 Pulse Ox 98 04/21/23 08:17 Oxygen Delivery Method Room Air 04/21/23 08:17 BMI result Body Mass Index 21.2 Tobacco/Smoking Status: Tobacco use Status Tobacco use date assessed 03/10/23 04/21/23 08:26 Patient Tobacco Use Status Never used Tobacco 04/21/23 08:26 e-Cigarette/Vaping Use Never Used 04/21/23 08:26 PHQ-9: PHQ-9 Score PHQ-9: Total score 1 04/21/23 08:26 Depression Screening Interpretation: Negative Thrive Assessment: Date of Thrive Assessment Date Thrive assessed 04/21/23 04/21/23 08:26 Currently or been in a relationship where the following occur: no concerns reported Const Other: General: no acute distress, well developed, alert and awake Nutritional Appearance: well nourished Orientation/consciousness: patient oriented x3 HENMT Head: Yes normocephalic and Yes atraumatic Ears: hearing grossly normal bilaterally. Impacted cerumen to both ears occluding the TMs General nose exam: Normal external nose present and Normal nares present Mouth: Normal oral and palatal mucosa present and moist mucous membranes Teeth and gingiva: dentition normal Throat: Yes oropharynx normal Eyes Pupils: Equal, round and reactive pupils present and Pupil accommodation reflex normal EOM: EOMs intact bilaterally Neck Neck: Yes normal visual inspection, Yes no lymphadenopathy and Yes trachea midline Thyroid: Thyroid normal Carotids: no bruits Lymphatic: no lymphadenopathy noted Chest Chest palpation & inspection: normal inspection of the chest Resp Effort & Inspection: normal respiratory effort Auscultation: clear to auscultation bilaterally Cardio Rate: regular rate Rhythm: regular rhythm Heart sounds: S1 normal heart sound present, S2 normal heart sound present, no gallops, no murmurs and no rubs Bruits: no abdominal aortic bruits and no carotid bruits GI Palpation (GI): No Abdominal aortic bruit present, Soft to palpation, nontender, No hepatosplenomegaly present and No Rebound tenderness present Auscultation: normal bowel sounds General: Yes no CVA tenderness Back/Spine/Pelvis Back: no CVA tenderness Cervical Spine: cervical ROM normal and No Cervical spine tenderness Thoracic/Lumbar Spine: thoraco-lumbar ROM normal, No pain with thoraco-lumbar ROM, No thoracic spinal tenderness and No lumbar spinal tenderness Skin General: warm and dry. Normal skin color. Normal skin turgor Lesions: no lesions Rashes: no rashes Trauma: no lacerations or abrasions Wounds: no wounds Nails: normal Neuro General: patient oriented x3, gait normal and CN's II-XI intact bilaterally Cranial nerves: Yes Equal, round and reactive pupils present Cognition (Neuro): normal cognition Gait exam (Neuro): Normal gait present Motor exam (neuro): 5/5 motor strength present throughout Sensory Exam: No Sensory deficit (Neuro) Deep tendon reflexes (DTR's): Right patellar reflex intensity grade: 2+ and Left patellar reflex intensity grade: 2+ Extrem General: Yes normal to inspection, No edema and No calf tenderness Psych Appearance: grossly normal Affect: normal affect Attitude: cooperative Thought process: Normal thought process present Assessment and Plan Assessment & Plan (1) Normal physical examination, routine: Code(s): Z00.00 - Encounter for general adult medical examination without abnormal findings Plan: No significant physical restrictions or limitations noted Continue current treatment regimen Continue follow-up with urology and nephrology as planned He has never had colonoscopy and declines colonoscopy at this time Return in 6 months for health maintenance or sooner with symptoms or concerns Verbalized understanding and agreed with treatment plan (2) Stage 3b chronic kidney disease (CKD): Code(s): N18.32 - Chronic kidney disease, stage 3b Plan: Recent labs reviewed with the patient Creatinine is elevated, 1.73, GFR is low 39 Was [facility] Intends to follow-up with Nephrology in his home country, [place] due to affordable healthcare cost Return with symptoms or concerns Verbalized understanding and agreed with the plan (3) Benign prostatic hyperplasia with incomplete bladder emptying: Code(s): N40.1 - Benign prostatic hyperplasia with lower urinary tract symptoms; R39.14 - Feeling of incomplete bladder emptying Plan: Recent PSA is elevated, 10.8 Continue to follow up with [facility] [place] (4) Low HDL (under 40): Code(s): E78.6 - Lipoprotein deficiency Plan: Recent HDL is slightly low, 37 Advised to limit foods high in saturated fat and avoid foods high in trans fat Routine exercise encouraged Will recheck lipid panel in 6 months. Advised to fast for 10-12 hours, may drink water only, and get blood work done before his next visit Follow-up in 6 months Verbalized understanding and agreed with treatment plan (5) Elevated fasting glucose: Code(s): R73.01 - Impaired fasting glucose Plan: Recent fasting glucose is 104 Will repeat fasting glucose and make changes as needed Advised to fast for 10-12 hours, may drink water only, and get blood work done Verbalized understanding and agreed with the plan (6) Impacted cerumen of both ears: Code(s): H61.23 - Impacted cerumen, bilateral Plan: Impacted cerumen both ears occluding the TMs No hearing impairment Advised to return for irrigation with impaired hearing or ear pain Verbalized understanding and agreed with the plan Orders: Orders Glucose Fasting Today R73.01 - Impaired fasting glucose Lipid Panel 6 Months E78.6 - Lipoprotein deficiency Coding Level of Care Code Est Pt Prev Care >65y(54859) Diagnoses Normal physical examination, routine Z00.00 Stage 3b chronic kidney disease (CKD) N18.32 Benign prostatic hyperplasia with incomplete bladder emptying N40.1; R39.14 Low HDL (under 40) E78.6 Elevated fasting glucose R73.01 Impacted cerumen of both ears H61.23 Additional Codes NIYA-7 Assessment Billing - NIYA-7 Assessment Tool: NIYA-7 Assessment 56014 ([id number])
[2023-04-21 08:17] VITALS: BP 126/70; PULSE 88; RESP 13; TEMP 36.4; O2SAT 98; BMI 21.2
== END 2023-04-21 08:55 | disposition home or self-care (01) ==
PROVIDERS: PCP Nurse Practitioner Family; Visit Provider Nurse Practitioner Family
DX: Z00.00 Encounter for general adult medical examination without abnormal findings (principal); N18.32 Chronic kidney disease, stage 3b; N40.1 Benign prostatic hyperplasia with lower urinary tract symptoms; R39.14 Feeling of incomplete bladder emptying; E78.6 Lipoprotein deficiency; R73.01 Impaired fasting glucose; H61.23 Impacted cerumen, bilateral
CPT/HCPCS: 99397

== ENCOUNTER 2023-05-21 08:25 | Outpatient (AMB) | payer BC, SELFPAY ==
--- NOTE | 2023-05-21 08:57 | A.OFFVIS_ITS ---
Intake Intake Visit Reasons: 6M PVR/PSA(set) Intake Note: Patient presents today for a follow-up on: Meds- Finasteride, Terazosin Allergies to Antibiotic- No Known Allergies Blood Thinner- None Post Void Residual:128ml Cleaner Window Required: No Accompanied by: Self / Same As Patient Allergies No Known Allergies Allergy (Verified 05/21/23 09:02) Medication List - Last Reconciled 05/21/23 by Tristan Keenan MD diclofenac sodium 1% (Arthritis Pain (diclofenac)) 2 grams topical BID finasteride 5 mg PO DAILY terazosin 10 mg PO BEDTIME 90 days HPI HPI Comments History of Present Illness Details Moiz is a pleasant [place]ese male. He patient of Dr. Escudero. He seen for the following urologic issues - lower urinary tract symptoms - elevated PSA Impressive response to finasteride PSA remains low Minimal urinary symptoms Consistent PVR 130 cc Six month follow-up PSA and PVR Continue maximum combination therapy Offered GreenLight laser Lower urinary tract symptoms Previous diagnosis of BPH - current medication finasteride, terazo sin 10 mg Imaging in [place] 2020 enlarged prostate with 70 cc residual - biopsy negative Prior use of Flomax, poor response to terazosin PSA 05/26 20, 10/29 9.7 19%, 04/01 10 Cystoscopy - 07/29 trilobar enlargement, trabeculation with cellules grade 2 PFSH Medical History Enlarged prostate Surgical History No pertinent past surgical history Social History Housing: House Patient Tobacco Use Status: Never used Tobacco e-Cigarette/Vaping Use: Never Used Second Hand Smoke Exposure: No service: No Current occupational status: employed Current occupation: [employer] Current occupational exposures/hazards: No Cognitive needs: No Hearing needs: No Vision needs: No Review of Systems Const Denies chills and Denies fever(s) Card Reports no additional complaints and Denies syncope Resp Denies cough GI Denies abdominal pain and Denies heartburn Reports as per HPI and Denies change in libido Neuro Denies syncope Psych Denies change in libido Endo Denies change in libido Physical Exam Const General: cooperative, healthy appearing, comfortable and no acute distress Orientation/consciousness: patient oriented x3 HEENT Face and sinus: Yes normal facial exam Mouth: moist mucous membranes Neck Neck: Yes normal visual inspection, Yes full ROM and Yes trachea midline Chest Chest palpation & inspection: normal inspection of the chest Resp Effort & Inspection: normal respiratory effort, able to speak in complete sentences and no respiratory distress GI Inspection: Yes normal to inspection Back/Spine/Pelvis Cervical Spine: normal cervical lordosis Thoracic/Lumbar Spine: thoracic and lumbar spine normal to inspection Skin General skin exam: no rashes or lesions noted Neuro General: patient oriented x3, gait normal, tone normal and moves all extremities Extrem General: Yes normal to inspection and Yes capillary refill normal Office Procedures Post Void Residual Post Residual Void Post Void Residual (PVR): 128 [id number] Void Residual by ultrasound Assessment & Plan Assessment & Plan (1) Benign prostatic hyperplasia with incomplete bladder emptying: Code(s): N40.1 - Benign prostatic hyperplasia with lower urinary tract symptoms; R39.14 - Feeling of incomplete bladder emptying (2) Elevated PSA: Code(s): R97.20 - Elevated prostate specific antigen [PSA] Plan Continue medications Offered GreenLight laser Orders: Orders AMB Post Void Residual by ultrasound Today R33.9 - Retention of urine, unspecified PSA,Total (Free>4and<10) 6 Months R97.20 - Elevated prostate specific antigen [PSA] Patient Instructions: Imaging studies, laboratory and physical exam results were discussed and reviewed in detail. No major barriers to patient understanding were identified. An opportunity to ask questions regarding the treatment plan was provided. All questions were answered. The patient expressed understanding and agreement with the above treatment plan. The patient is aware they should contact our office by phone for worsening of their current condition or the appearance of new urologic symptoms. Compliance is encouraged with any medications and followup testing that is ordered. It is a privilege to participate in the urologic care of your patient. If you have any questions or concerns regarding treatment for the above conditions, or other urologic issues, please do not hesitate to contact me. The office telephone contact is [phone]. This note is constructed using voice recognition software. While every effort has been made to ensure accuracy insurance clerk errors may have been included. Yours sincerely, Dr Tristan Keenan MD, [facility] - Urology Providers of Expert, Compassionate Care for the Genitourinary System Coding Level of Care Code Est Pt Level 3 (71822) Diagnoses Benign prostatic hyperplasia with incomplete bladder emptying N40.1; R39.14 Elevated PSA R97.20 CPT Codes Post Residual Void - PVR CPT Code: 57521-Xcvp Void Residual by ultrasound ([id number])
== END 2023-05-21 09:28 | disposition home or self-care (01) ==
PROVIDERS: PCP Nurse Practitioner Family; Visit Provider Urology
DX: N40.1 Benign prostatic hyperplasia with lower urinary tract symptoms (principal); R39.14 Feeling of incomplete bladder emptying; R97.20 Elevated prostate specific antigen [PSA]
CPT/HCPCS: 99213

== ENCOUNTER → 2023-05-21 08:25 | Outpatient (BNVA) | payer BC, SELFPAY | PROVIDERS: PCP Nurse Practitioner Family; Visit Provider Urology | DX: N40.1 Benign prostatic hyperplasia with lower urinary tract symptoms (principal); R39.14 Feeling of incomplete bladder emptying; R33.8 Other retention of urine; R97.20 Elevated prostate specific antigen [PSA] | CPT/HCPCS: 51798 ==

== ENCOUNTER 2023-08-31 14:54 | Outpatient (AMB) | payer BC, SELFPAY ==
[2023-08-31 15:09] VITALS: BP 100/60; PULSE 95; RESP 14; TEMP 36.5; O2SAT 96; BMI 20.8
--- NOTE | 2023-08-31 15:09 | A.OFFPC_ITS ---
Vital Signs 08/31/23 15:09 Height 5 ft 10 in Weight 145 lb 4 oz BMI 20.8 BP 100/60 Blood Pressure Location Rt brachial Position Sitting Respiration 14 Pulse 95 Pulse Source Pulse Oximeter Temp 97.7 F Temp Source Temporal Artery Scan Pulse Oximetry (%) 96 Oxygen Delivery Method Room Air Intake Visit Reasons: RASH ON FEET Employment Consultant Required: No Accompanied by: Self / Same As Patient Allergies No Known Allergies Allergy (Verified 08/31/23 15:25) Medication List - Last Reconciled 08/31/23 by Tc Escudero CNP diclofenac sodium 1% (Arthritis Pain (diclofenac)) 2 grams topical BID finasteride 5 mg PO DAILY 90 days terazosin 10 mg PO BEDTIME 90 days Tobacco use date assessed: 03/10/23 Fall risk assessment: No Falls in past year Last assessed Fall Risk: 08/31/23 Dental Screening Dental Screen Date: 04/21/23 HPI HPI Comments History of Present Illness Details 73-year-old male presents with complaint s of a rash that has been present to his lower extremities for the past 20 days. He notes intermittent itching. He has been applying oil and vinegar to the rash with some improvement. He requests bilateral ear irrigation for cerumen impaction. No ear pain or hearing impairment [facility] Medical History Enlarged prostate Surgical History No pertinent past surgical history Social History Housing: House Patient Tobacco Use Status: Never used Tobacco e-Cigarette/Vaping Use: Never Used Second Hand Smoke Exposure: No service: No Current occupational status: employed Current occupation: [employer] Current occupational exposures/hazards: No Cognitive needs: No Hearing needs: No Vision needs: No Questionnaire Thrive Questionnaire Date Thrive assessed: 04/21/23 NIYA-7 AMB Questionnaire NIYA-7 Date NIYA - 7 assessed: 04/21/23 Source: Developed by Drs. Ariel Arias, Marie Momin, Cedrick Nascimento and colleagues, with an educational leigh ann from [employer]. Review of Systems Const Details: Const Denies chills, Denies fatigue, Denies fever(s), Denies headache(s) and Denies weakness ENT Reports as per HPI Card Denies chest pain, Denies lightheadedness, Denies dyspnea and Denies other (Palpitations) Resp Denies cough, Denies dyspnea, Denies wheezing and Denies other ( shortness of breath) GI Denies abdominal pain, Denies melena, Denies hematochezia, Denies change in bowel habits, Denies dyspepsia and Denies nausea Denies hematuria and Denies dysuria Musc Denies abnormal gait, Denies myalgias, Denies arthralgias, Denies numbness and Denies tingling Skin/Breast Reports rash, Denies unusual bruising and Denies wounds Neuro Denies abnormal gait, Denies dizziness, Denies headache(s), Denies memory loss, Denies numbness, Denies Sensory deficit (Neuro), Denies tingling and Denies weakness Psych Denies anxiety, Denies depression, Denies memory loss Endo Denies cold intolerance, Denies fatigue, Denies heat intolerance, Denies polydipsia and Denies polyuria Aller/Immun Denies wheezing Physical exam (Primary Care) Vital Signs: Last Vital Signs Temp 97.7 F 08/31/23 15:09 Pulse 95 08/31/23 15:09 Resp 14 08/31/23 15:09 BP 100/60 08/31/23 15:09 Pulse Ox 96 08/31/23 15:09 Oxygen Delivery Method Room Air 08/31/23 15:09 BMI result Body Mass Index 20.8 Tobacco/Smoking Status: Tobacco use Status Tobacco use date assessed 03/10/23 08/31/23 15:15 Patient Tobacco Use Status Never used Tobacco 08/31/23 15:15 e-Cigarette/Vaping Use Never Used 08/31/23 15:15 Thrive Assessment: Date of Thrive Assessment Date Thrive assessed 04/21/23 08/31/23 15:15 Const Other: General: no acute distress and well developed Nutritional Appearance: well nourished Orientation/consciousness: patient oriented x3 HENMT Head is normocephalic Bilateral ear canal with significant cerumen occluding the TMs Nasal turbinates and oropharynx are pink and moist Sinuses are nontender with palpation No auricular or cervical lymphadenopathy Eyes General: appearance normal, both eyes and all related structures Pupils: Equal, round and reactive pupils present EOM: EOMs intact bilaterally Resp Effort & Inspection: normal respiratory effort Auscultation: clear to auscultation bilaterally Cardio Rate: regular rate Rhythm: regular rhythm Heart sounds: S1 normal heart sound present, S2 normal heart sound present, no gallops, no murmurs and no rubs GI Palpation (GI): No Abdominal aortic bruit present, Soft to palpation, nontender, No hepatosplenomegaly present and No Rebound tenderness present Auscultation: normal bowel sounds General: Yes no CVA tenderness Back/Spine/Pelvis Back: no CVA tenderness Cervical Spine: cervical ROM normal and No Cervical spine tenderness Thoracic/Lumbar Spine: thoraco-lumbar ROM normal, No pain with thoraco-lumbar ROM, No thoracic spinal tenderness and No lumbar spinal tenderness Extrem General: Yes normal to inspection, No edema and No calf tenderness Skin General: warm and dry. Normal skin color. Normal skin turgor Lesions: no lesions Rashes: Red, dry, and scaly patches noted to his left and right lower legs, consistent with eczema Trauma: no lacerations or abrasions Wounds: no wounds Nails: normal Neuro General: patient oriented x3, gait normal and no focal neuro deficit Cranial nerves: Yes Equal, round and reactive pupils present Cognition (Neuro): normal cognition Gait exam (Neuro): Normal gait present Sensory Exam: No Sensory deficit (Neuro) Psych Appearance: grossly normal Affect: normal affect Attitude: cooperative Thought process: Normal thought process present Assessment and Plan Assessment & Plan (1) Eczema: Code(s): L30.9 - Dermatitis, unspecified Plan: Rash that itches intermittently to bilateral lower legs X 20 days. Some improvement with oil and vinegar Red, dry, and scaly patches noted to his left and right lower legs, consistent with eczema Triamcinolone cream ordered. Advised to apply to rash as prescribed. Instructed on the risks, benefits, and potential adverse reactions of the medication Follow-up with new or worsening signs and symptoms Verbalized understanding and agreed with the treatment plan (2) Impacted cerumen of both ears: Code(s): H61.23 - Impacted cerumen, bilateral Plan: Significant cerumen removed from both ear with irrigation. Normal ear canal and TM bilaterally Patient reports improved hearing Follow-up as needed Verbalized understanding and agreed with the plan Medications: New triamcinolone acetonide 0.1% 1 appl topical BID 30 grams 0RF Coding Level of Care Code Est Pt Level 4 (21826) Complex EM visit Add On G2211 Diagnoses Eczema L30.9 Impacted cerumen of both ears H61.23
== END 2023-08-31 16:14 | disposition home or self-care (01) ==
PROVIDERS: PCP Nurse Practitioner Family; Visit Provider Nurse Practitioner Family
DX: L30.9 Dermatitis, unspecified (principal); H61.23 Impacted cerumen, bilateral
CPT/HCPCS: 99214

== ENCOUNTER 2023-10-20 07:45 | Outpatient (AMB) | payer BC, SELFPAY ==
--- NOTE | 2023-10-20 08:00 | A.OFFPC_ITS ---
Vital Signs 10/20/23 08:10 Height 5 ft 10 in Weight 148 lb 4 oz BMI 21.3 BP 110/60 Blood Pressure Location Rt brachial Position Sitting Respiration 12 Pulse 92 Pulse Source Pulse Oximeter Temp 97.9 F Temp Source Tympanic Pulse Oximetry (%) 96 Oxygen Delivery Method Room Air Intake Visit Reasons: 6 mos health maintenance Intake Note: 6 month follow up health maintenance Allergies No Known Allergies Allergy (Verified 10/20/23 08:14) Medication List - Last Reconciled 10/20/23 by Tc Escudero CNP diclofenac sodium 1% (Arthritis Pain (diclofenac)) 2 grams topical BID finasteride 5 mg PO DAILY 90 days terazosin 10 mg PO BEDTIME 90 days triamcinolone acetonide 0.1% 1 appl topical BID Tobacco use date assessed: 03/10/23 Dental Screening Dental Screen Date: 04/21/23 HPI HPI Comments History of Present Illness Details 73-year-old male presents for [facility] emergency department follow-up He has past medical history significant for BPH and stage IIIB CKD He admits to taking his medications as prescribed without adverse reactions He notes that he eats and sleeps well. He has not been exercising He offers no complaints and denies acute symptoms at this time He did not get fasting lipid panel and glucose blood work done as planned He is followed by [facility] urology and has a follow-up in a month He [facility]. He was last seen on 11/25/2022. He states that he stopped following up after his health plan declined coverage. He notes that he has an appointment later this week with nephrology in his home country, [facility]; he states that is a cheaper option He has never had a colonoscopy. He continues to decline colonoscopy [facility] Medical History Enlarged prostate Surgical History No pertinent past surgical history Social History Housing: House Patient Tobacco Use Status: Never used Tobacco e-Cigarette/Vaping Use: Never Used Second Hand Smoke Exposure: No service: No Current occupational status: employed Current occupation: [employer] Current occupational exposures/hazards: No Cognitive needs: No Hearing needs: No Vision needs: No Questionnaire PHQ-9 Over the last 2 weeks, how often have you been bothered by any of the following problems? 1. Little interest or pleasure in doing things: not at all 2. Feeling down, depressed, or hopeless: not at all 3. Trouble falling or staying asleep, or sleeping too much: not at all 4. Feeling tired or having little energy: not at all 5. Poor appetite or overeating: not at all 6. Feeling bad about yourself - or that you are a failure or have let yourself or your family down: not at all 7. Trouble concentrating on things, such as reading the newspaper or watching television: not at all 8. Moving or speaking so slowly that other people could have noticed. Or the opposite - being so fidgety or restless that you have been moving around a lot more than usual: not at all 9. Thoughts that you would be better off or of hurting yourself in some way: not at all Total score: 0 Depression Screening Interpretation: Negative Depression Screening Done: Yes 07660 - PHQ-9 Billing: Yes Source: Developed by Drs. Ariel Arias, Marie Momin, Cedrick Nascimento and colleagues, with an educational leigh ann from [employer]. Thrive Questionnaire Date Thrive assessed: 10/20/23 I am a: Patient What is your living situation today?: I have a steady place to live Within the past 12 months, did the food you bought not last and you didn't have the money to get more?: Never true Within the past 12 months, did you worry whether your food would run out before you got money to buy more?: Never true Do you have trouble paying for medicines?: No Do you have trouble getting transportation to medical appointments?: No Do you have trouble paying your heating and electricity bill?: No Do you have trouble taking care of your child, family member or friend?: No Do you have trouble with day-to-day activities such as bathing, preparing meals, shopping, managing finances, etc.?: No Are you currently unemployed and looking for a job?: No Are you interested in more education?: No Please select the resources that you would like help with: None Currently or been in a relationship where the following occur: No concerns reported THRIVE Score: 0 AUDIT C Alcohol Use Questionnaire (AUDIT-C) 1. How often do you have a drink containing alcohol?: Never 3. How often do you have six or more drinks on one occasion?: Never Total Score: 0 Score Reviewed/Action Taken: Yes NIYA-7 AMB Questionnaire NIYA-7 Date NIYA - 7 assessed: 10/20/23 Feeling nervous, anxious, or on edge: 0 = Not at all Not being able to stop or control worryin = Not at all Worrying too much about different things: 0 = Not at all Trouble relaxin = Not at all Being so restless that it is hard to sit still: 0 = Not at all Becoming easily annoyed or irritable: 0 = Not at all Feeling afraid as if something awful might happen: 0 = Not at all Total NIYA-7 score (0-4 normal; 5-9 mild; 10-14 moderate; 15-21 severe): 0 Source: Developed by Drs. Ariel Arias, Marie Momin, Cedrick Nascimento and colleagues, with an educational leigh ann from [employer]. NIYA-7 Assessment Billing NIYA-7 Assessment Tool: NIYA-7 Assessment 25856 Review of Systems Const Details: Const Denies chills, Denies fatigue, Denies fever(s), Denies headache(s) and Denies weakness ENT Denies dizziness and Denies headache(s) Card Denies chest pain, Denies lightheadedness, Denies dyspnea and Denies other (Palpitations) Resp Denies cough, Denies dyspnea, Denies wheezing and Denies other ( shortness of breath) GI Denies abdominal pain, Denies melena, Denies hematochezia, Denies change in bowel habits, Denies dyspepsia and Denies nausea Denies hematuria and Denies dysuria Musc Denies abnormal gait, Denies myalgias, Denies arthralgias, Denies numbness and Denies tingling Skin/Breast Denies rash, Denies unusual bruising and Denies wounds Neuro Denies abnormal gait, Denies dizziness, Denies headache(s), Denies memory loss, Denies numbness, Denies Sensory deficit (Neuro), Denies tingling and Denies weakness Psych Denies anxiety, Denies depression, Denies memory loss Endo Denies cold intolerance, Denies fatigue, Denies heat intolerance, Denies polydipsia and Denies polyuria Aller/Immun Denies wheezing Physical exam (Primary Care) Tobacco/Smoking Status: Tobacco use Status Tobacco use date assessed 03/10/23 10/20/23 08:03 Patient Tobacco Use Status Never used Tobacco 10/20/23 08:03 e-Cigarette/Vaping Use Never Used 10/20/23 08:03 Depression Screening Interpretation: Negative Thrive Assessment: Date of Thrive Assessment Date Thrive assessed 04/21/23 10/20/23 08:03 Currently or been in a relationship where the following occur: No concerns reported Const Other: General: no acute distress and well developed Nutritional Appearance: well nourished Orientation/consciousness: patient oriented x3 HENMT Head: Yes normocephalic and Yes atraumatic Eyes General: appearance normal, both eyes and all related structures Pupils: Equal, round and reactive pupils present EOM: EOMs intact bilaterally Resp Effort & Inspection: normal respiratory effort Auscultation: clear to auscultation bilaterally Cardio Rate: regular rate Rhythm: regular rhythm Heart sounds: S1 normal heart sound present, S2 normal heart sound present, no gallops, no murmurs and no rubs GI Palpation (GI): No Abdominal aortic bruit present, Soft to palpation, nontender, No hepatosplenomegaly present and No Rebound tenderness present Auscultation: normal bowel sounds General: Yes no CVA tenderness Back/Spine/Pelvis Back: no CVA tenderness Cervical Spine: cervical ROM normal and No Cervical spine tenderness Thoracic/Lumbar Spine: thoraco-lumbar ROM normal, No pain with thoraco-lumbar ROM, No thoracic spinal tenderness and No lumbar spinal tenderness Extrem General: Yes normal to inspection, No edema and No calf tenderness Skin General: warm and dry. Normal skin color. Normal skin turgor Neuro General: patient oriented x3, gait normal and no focal neuro deficit Cranial nerves: Yes Equal, round and reactive pupils present Cognition (Neuro): normal cognition Gait exam (Neuro): Normal gait present Sensory Exam: No Sensory deficit (Neuro) Psych Appearance: grossly normal Affect: normal affect Attitude: cooperative Thought process: Normal thought process present Assessment and Plan Assessment & Plan (1) BPH (benign prostatic hyperplasia): Code(s): N40.0 - Benign prostatic hyperplasia without lower urinary tract symptoms Plan: Controlled symptoms Followed by [facility] urology (2) Stage 3b chronic kidney disease (CKD): Code(s): N18.32 - Chronic kidney disease, stage 3b Plan: He stopped following nephrology since his health plan declined coverage He has an appointment later this week with nephrology in his home country, [place] Advised to bring nephrology consult notes to his next appointment Verbalized understanding and agreed with the plan (3) Low HDL (under 40): Code(s): 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 Will review results and make changes as needed Encouraged to limit foods high in saturated fat and avoid foods high in trans fat Routine exercise encouraged Verbalized understanding and agreed with the plan (4) Elevated fasting glucose: Code(s): R73.01 - Impaired fasting glucose Plan: Recent fasting glucose in March is slightly elevated, 104 He did not get fasting blood work done as planned Advised to get fasting blood work done. Will review results and make changes as needed Healthy diet and routine exercise encouraged Verbalized understanding and agreed with the plan Medications: Refilled triamcinolone acetonide 0.1% 1 appl topical BID 30 grams 0RF Coding Level of Care Code Est Pt Level 4 (24782) Diagnoses BPH (benign prostatic hyperplasia) N40.0 Stage 3b chronic kidney disease (CKD) N18.32 Low HDL (under 40) E78.6 Elevated fasting glucose R73.01 Additional Codes NIYA-7 Assessment Billing - NIYA-7 Assessment Tool: NIYA-7 Assessment 93065 ([id number])
[2023-10-20 08:10] VITALS: BP 110/60; PULSE 92; RESP 12; TEMP 36.6; O2SAT 96; BMI 21.3
== END 2023-10-20 08:26 | disposition home or self-care (01) ==
PROVIDERS: PCP Nurse Practitioner Family; Visit Provider Nurse Practitioner Family
DX: N40.0 Benign prostatic hyperplasia without lower urinary tract symptoms (principal); N18.32 Chronic kidney disease, stage 3b; E78.6 Lipoprotein deficiency; R73.01 Impaired fasting glucose
CPT/HCPCS: 99214

== ENCOUNTER 2023-10-21 08:03 | Outpatient (REF) | payer BC, SELFPAY ==
[2023-10-21 12:45] LABS: Cholesterol 176 mg/dL (<200); Glucose Fasting 95 mg/dL (60-99); HDL Cholesterol 44 mg/dL (>40); LDL Cholesterol Calculated 109 mg/dL (<100); Triglycerides 115 mg/dL (<150)
[2023-10-21 13:00] LABS: PSA,Total (Free>4and<10) 8.38 ng/mL (0.00-4.00)
[2023-10-23 08:38] LABS: Free Prostate Spec Ag 2.1 ng/mL; Percent Free Prostate Spec Ag 23 % (calc) (>25); Prostate Specific Ag Total 9.1 ng/mL (< OR = 4.0)
== END 2023-10-21 08:04 | disposition home or self-care (01) ==
LOC: HO.WFDLDS 08:03
PROVIDERS: Urology; Visit Provider Nurse Practitioner Family
DX: R73.01 Impaired fasting glucose (principal); E78.6 Lipoprotein deficiency; R97.20 Elevated prostate specific antigen [PSA]; E87.6 Hypokalemia; Z12.5 Encounter for screening for malignant neoplasm of prostate
CPT/HCPCS: 36415; 80061; 82947; 84153; 84154

== ENCOUNTER 2023-11-20 08:19 | Outpatient (AMB) | payer BC, SELFPAY ==
--- NOTE | 2023-11-20 08:52 | A.OFFVIS_ITS ---
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 He patient of Dr. Escudero. He seen for the following urologic issues - lower urinary tract symptoms - elevated PSA Impressive response to finasteride PSA remains under double digits which is a good response for him Minimal urinary symptoms PVR 0 cc - which is quite an incredible response for him Six month follow-up PSA and PVR Continue maximum combination therapy - finasteride and terazosin 10 mg Offered GreenLight laser again Lower urinary tract symptoms Previous diagnosis of BPH - current medication finasteride, terazosin 10 mg Imaging in [place] 2020 enlarged prostate with 70 cc residual - biopsy negative Prior use of Flomax, poor response to terazosin PSA 05/26 20, 10/29 9.7 19%, 04/01 10, 10/30 9.1 23% Cystoscopy - 07/29 trilobar enlargement, trabeculation with cellules grade 2 PFSH Medical History Enlarged prostate Surgical History No pertinent past surgical history Social History Housing: House Patient Tobacco Use Status: Never used Tobacco e-Cigarette/Vaping Use: Never Used Second Hand Smoke Exposure: No service: No Current occupational status: employed Current occupation: [employer] Current occupational exposures/hazards: No Cognitive needs: No Hearing needs: No Vision needs: No Review of Systems Const Denies chills and Denies fever(s) Card Reports no additional complaints and Denies syncope Resp Denies cough GI Denies abdominal pain and Denies heartburn Reports as per HPI and Denies change in libido Neuro Denies syncope Psych Denies change in libido Endo Denies change in libido Physical Exam Const General: cooperative, healthy appearing, comfortable and no acute distress Orientation/consciousness: patient oriented x3 HEENT Face and sinus: Yes normal facial exam Mouth: moist mucous membranes Neck Neck: Yes normal visual inspection, Yes full ROM and Yes trachea midline Chest Chest palpation & inspection: normal inspection of the chest Resp Effort & Inspection: normal respiratory effort, able to speak in complete sentences and no respiratory distress GI Inspection: Yes normal to inspection Back/Spine/Pelvis Cervical Spine: normal cervical lordosis Thoracic/Lumbar Spine: thoracic and lumbar spine normal to inspection Skin General skin exam: no rashes or lesions noted Neuro General: patient oriented x3, gait normal, tone normal and moves all extremities Extrem General: Yes normal to inspection and Yes capillary refill normal Office Procedures Post Void Residual Post Residual Void Post Void Residual (PVR): 0 09172-[id number] Void Residual by ultrasound Results AMB Urinalysis, Automated UA Leukoctes 0 Elicia/uL Last Edit by OLIVIA Le on 11/20/23 08:59 UA Nitrite Negative Last Edit by OLIVIA Le on 11/20/23 08:59 UA Urobilinogen 0.2 mg/dL Last Edit by OLIVIA Le on 11/20/23 08:5 9 UA Protein 0 mg/dL Last Edit by OLIVIA Le on 11/20/23 08:59 UA pH 6.0 Last Edit by OLIVIA Le on 11/20/23 08:59 UA Blood 0 Ernesto/uL Last Edit by OLIVIA Le on 11/20/23 08:59 UA Specific [place] 1.010 Last Edit by OLIVIA Le on 11/20/23 08: 59 UA Ketone Negative Last Edit by OLIVIA Le on 11/20/23 08:59 UA Bilirubin 0 mg/dL Last Edit by OLIVIA Le on 11/20/23 08:59 UA Glucose 0 mg/dL Last Edit by OLIVIA Le on 11/20/23 08:59 Results Reviewed Results Reviewed: Laboratory Last Values Urine pH (Auto) 6.0 11/20/23 08:58 Specific [place] (Auto) 1.010 11/20/23 08:58 Urine Protein (Auto) 0 mg/dL 11/20/23 08:58 Glucose (UA)(Auto) 0 mg/dL 11/20/23 08:58 Urine Ketones (Auto) Negative 11/20/23 08:58 Urine Blood (Auto) 0 Ernesto/uL 11/20/23 08:58 Urine Nitrite (Auto) Negative 11/20/23 08:58 Urine Bilirubin (Auto) 0 mg/dL 11/20/23 08:58 Urine Urobilinogen (Auto) 0.2 mg/dL 11/20/23 08:58 Leukocyte Esterase (Auto) 0 Elicia/uL 11/20/23 08:58 Assessment & Plan Assessment & Plan (1) Elevated PSA: Code(s): R97.20 - Elevated prostate specific antigen [PSA] Category: Medical (2) BPH (benign prostatic hyperplasia): Code(s): N40.0 - Benign prostatic hyperplasia without lower urinary tract symptoms Category: Medical Plan Six-month follow-up Orders: Orders AMB Urinalysis Automated Today Z13.9 - Encounter for screening, unspecified PSA,Total (Free>4and<10) 6 Months N40.0 - Benign prostatic hyperplasia without lower urinary tract symptoms Patient Instructions: Imaging studies, laboratory and physical exam results were discussed and reviewed in detail. No major barriers to patient understanding were identified. An opportunity to ask questions regarding the treatment plan was provided. All questions were answered. The patient expressed understanding and agreement with the above treatment plan. The patient is aware they should contact our office by phone for worsening of their current condition or the appearance of new urologic symptoms. Compliance is encouraged with any medications and followup testing that is ordered. It is a privilege to participate in the urologic care of your patient. If you have any questions or concerns regarding treatment for the above conditions, or other urologic issues, please do not hesitate to contact me. The office telephone contact is [phone]. This note is constructed using voice recognition software. While every effort has been made to ensure accuracy animal ecologist errors may have been included. Yours sincerely, Dr Tristan Keenan MD, [facility] - Urology Providers of Expert, Compassionate Care for the Genitourinary System Coding Level of Care Code Est Pt Level 3 (37722) Complex EM visit Add On G2211 Diagnoses Elevated PSA R97.20 BPH (benign prostatic hyperplasia) N40.0 CPT Codes Post Residual Void - PVR CPT Code: 85538-Pxuz Void Residual by ultrasound ([id number])
== END 2023-11-20 09:09 | disposition home or self-care (01) ==
PROVIDERS: PCP Nurse Practitioner Family; Visit Provider Urology
DX: R97.20 Elevated prostate specific antigen [PSA] (principal); N40.0 Benign prostatic hyperplasia without lower urinary tract symptoms; Z13.9 Encounter for screening, unspecified
CPT/HCPCS: 99213

== ENCOUNTER → 2023-11-20 08:19 | Outpatient (BNVA) | payer BC, SELFPAY | PROVIDERS: PCP Nurse Practitioner Family; Visit Provider Urology | DX: R97.20 Elevated prostate specific antigen [PSA] (principal); N40.0 Benign prostatic hyperplasia without lower urinary tract symptoms | CPT/HCPCS: 51798; 81003 ==